=== PATIENT | female | born 1990 | race Caucasian/White ===

== ENCOUNTER → 2016-03-26 | Outpatient (CLI) | payer OTHER | LOC: BHSO 11:13 | DX: F31.81 Bipolar II disorder (principal) ==

== ENCOUNTER → 2016-07-20 | Outpatient (CLI) | payer OTHER | LOC: BHSO 14:31 | DX: F31.81 Bipolar II disorder (principal) ==

== ENCOUNTER → 2016-08-20 | Outpatient (CLI) | payer OTHER | LOC: BHSO 14:01 | DX: F31.81 Bipolar II disorder (principal) ==

== ENCOUNTER → 2016-11-19 | Outpatient (CLI) | payer OTHER | LOC: BHSO 13:48 | DX: F41.1 Generalized anxiety disorder (principal) ==

== ENCOUNTER → 2017-02-07 | Outpatient (CLI) | payer OTHER | LOC: BHSO 12:44 | DX: F41.1 Generalized anxiety disorder (principal) ==

== ENCOUNTER → 2017-04-19 | Outpatient (CLI) | payer OTHER | LOC: BHSO 14:32 | DX: F41.1 Generalized anxiety disorder (principal) | CPT/HCPCS: G0463 ==